=== PATIENT | female | born 1950 | race Caucasian/White ===

== ENCOUNTER 2018-04-14 05:28 | Inpatient (IN) ==
[~2018-04-14 05:28] MED LIST: Metoprolol Tartrate 25 MG Tablet PO SCH
[2018-04-14] MEDS ORDERED: Insulin Regular (For Infusion) 100 UNIT in Sodium Chlor 0.9% Inj 99 ML IV.CONT PRN ×2 (06:06→12:13)
[2018-04-14] MEDS ORDERED: Dextrose 50% in Water 50 ML Vial IV.PUSH PRN ×2 (06:06→12:13)
[2018-04-14] MEDS ORDERED: Sodium Chloride 0.9% Irr Bot 500 ML, ceFAZolin Inj 500 MG IRRIGATION SCH ×2 (06:15)
[2018-04-14] MEDS ORDERED: Metoprolol Tartrate 25 MG Tablet PO ONE (06:15)
[2018-04-14] MEDS ORDERED: Chlorhexidine 4% Topical 120 APPLIC/120 ML Bottle TOPICAL SCH (06:15)
[2018-04-14] MEDS ORDERED: Chlorhexidine Gluconate 2% 1 Pack (2 Cloths) TOPICAL ONE (06:15)
[2018-04-14] MEDS ORDERED: Sodium Chlor 0.9% Inj 500 ML IV.CONT ONE ×2 (06:15→07:19)
[2018-04-14] MEDS ORDERED: Heparin - SQ 10,000 UNITS/ML Vial ONE ×2 (06:26→06:27)
[2018-04-14] MEDS ORDERED: ceFAZolin 2 GM Premix Inj 2 GM/50 ML PIGGYBACK IV.SIG ONE (06:27)
[2018-04-14] MEDS ORDERED: ceFAZolin Inj 2,000 MG in Sodium Chlor 0.9% Inj 80 ML IV.SIG SCH (07:00)
[2018-04-14] MEDS ORDERED: Sodium Chlor 0.9% Inj 200 ML IV.CONT ONE (07:19)
[2018-04-14] MEDS ORDERED: Normosol-R pH 7.4 Inj 3,000 ML IV.CONT ONE (07:19)
[2018-04-14] MEDS ORDERED: Sodium Chlor 0.9% Inj 1,000 ML IV.CONT ONE (07:19)
[2018-04-14] MEDS ORDERED: Artificial Tears Opth Oint 3.5 GM Tube EACH EYE ONE (07:19)
[2018-04-14] MEDS ORDERED: Protamine Sulfate Inj 50 MG/5 ML Vial IV.CONT ONE (07:19)
[2018-04-14] MEDS ORDERED: Dexmedetomidine Inj 200 MCG/2 ML Vial IV.CONT ONE (07:19)
[2018-04-14] MEDS ORDERED: Phenylephrine/NS 1000 MCG/10ML Syringe IV.PUSH ONE (07:19)
[2018-04-14] MEDS ORDERED: CUST1000P IRRIGATION ONE (07:26)
[2018-04-14] MEDS ORDERED: Potassium Chlor 40 mEq Premix 40 MEQ/100 ML PIGGYBACK ONE (07:26)
[2018-04-14] MEDS ORDERED: Albumin Human 25% Inj 50 ML IV.SIG ONE (07:27)
[2018-04-14] MEDS ORDERED: Heparin 10,000 UNITS/10 ML Vial (for IV use) ONE (07:28)
[2018-04-14] MEDS ORDERED: Calcium Chloride Inj 1 GM/10 ML Syringe ONE (07:28)
--- NOTE | 2018-04-14 09:31 | P.PNCV ---
- Note Subjective/Hospital Course: 68/ female initially seen in office 03/18/[address] Gutierrez . With known childhood murmur who was diagnosed with when she had hip surgery a few years ago. She has been monitored and recent ECHO revealed progression of her severe . She reported having fatigue and exertional dyspnea PMH anxiety, < DM, HLP, HTN, Pacer insitu ( bradycardia ) , Afib ( eliquis at home ) pt electively admitted for surgery Objective: Vital Signs - 24 hr 04/14/18 07:09 Temperature 98.9 F Pulse Rate 80 Respiratory Rate 16 Blood Pressure 196/84 H Pulse Oximetry 99 Labs: Laboratory Results - last 12 hr 04/14/18 06:40 Blood Type B Positive Antibody Screen Negative MTS Gel Crossmatch See Detail Bld Prod Order Comment
--- NOTE | 2018-04-14 09:43 | P.DCO ---
- Diagnosis (1) Aortic stenosis Status: Acute (2) S/P aortic valve replacement Status: Acute (3) Diabetes mellitus Status: Acute (4) Hyperlipidemia Status: Acute (5) Hypertension Status: Acute - Home Health Nursing Order: Medical education, Signs/symptoms of disease process, Diabetic education , Wound care and dressing changes, Nursing assessment with vital signs Instructions: Heart and Vascular Surgery patients *Special attention to sternal dressing Mandatory frequency Assess and evaluation, 4 days in a row The next week 3X week 2 times a week for 4 weeks 1 time a week for 5 weeks Schedule Heart and Vascular patients for full 60 day certification period Initial visit Review Open Heart Surgery Discharge Instructions (Sternal precautions, Activity, Elastic hose, Incision care, Driving, Incentive spirometry, Smoking, [place], Work and other) Need Betadine to paint incision Medication reconciliation Importance of follow up care/ check on appointments Make calendar record temperature daily When to call [facility] nurse, review instructions, phone list Incentive Spirometry, demonstration Visit 1- Begin discharge instruction for patient family and/ or caregiver using teach back method- Signs and symptoms of infection Disease characteristics Medicines and side effects Foods and nutrition/ appetite Infection control/ hand washing/ hygiene Visit 2- Continue teaching Discharge instructions- include additional information on smoking cessation , sternal dressing (sternal vac) Visit 3- Continue teaching- Cough and deep breathing, incision monitoring. Choose my plate Visit 4- Continue teaching- Discuss limitations Discuss how they are feeling Discuss progress toward goals Remaining visits- continue teaching and monitoring For any questions please call : Friday 8am-5pm Heart & Vascular Surgery Office ( Dr. Gutierrez & Dr. Dutta), After Hours / Nights (5pm -8am) Weekends and Holidays Please call [facility] Card[facility] Unit ([facility]) Charge Nurse PREVENA Single Use Negative Wound Therapy System Caregiver Instruction Sheet 1. A Prevena dressing system was applied to the chest incision during surgery , to promote wound healing. It works via a suction device (negative pressure wound therapy) to remove low to moderate levels of exudate (drainage) and infectious materials. We recommend that the device stay in place for up to seven days, from day of surgery. 2. Day of Surgery__04/14/18 Day of Removal ____04/21/18 3. The dressing should only be removed by a health nonfarm animal caretaker. Please arrange removal of device to coincide with Home Health visit and or with Nursing staff at Rehab 4. If skin reddening or irritation of skin occurs, or excessive drainage, please notify the Cardiovascular Surgeons office at [phone]. 5. Light showering is permissible; however the pump should be disconnected and placed in safe location, where it will not get wet. The dressing should not be exposed to direct spray or submerged in water. No bath tub / shower only. Ensure the end of the tubing attached to the dressing is facing down so that water does not enter the top of the tube. 6. To remove Prevena dressing: press purple button to turn off device / remove the suction. Then disconnect the tubing from the pump. The fixation strips should be stretched away from the skin and the dressing lifted at one corner and peeled back until it has been fully removed. 7. After removal, it is ok to shower daily using liquid dial soap and clean wash cloth, rinse and pat dry, and leave incision open to air dry. For any concerns regarding Prevena dressing, and or wounds, please contact Angeli Miranda, patient navigator at [phone] or notify the Cardiovascular Surgeons office at [phone]. - Case Management Consult Yes - Certification I have seen patient Deann Mclaughlin on 04/14/18. My clinical findings support the need for the requested home health care services because: Deconditioned with increased weakness I certify that my clinical findings support that this patient is homebound because: Post-op weakness (3) Diabetes mellitus Qualifiers: Diabetes mellitus type: type 2
[2018-04-14] MEDS ORDERED: Protamine Sulfate Inj 50 MG/5 ML Vial ONE (10:09)
[2018-04-14] MEDS ORDERED: Sugammadex Inj 200 MG/2 ML Vial IV.PUSH ONE (11:50)
[2018-04-14] MEDS ORDERED: DEXAMETHASONE INFILTRATN ONE ×3 (12:00)
[2018-04-14] MEDS ORDERED: BUPIVACAINE LIPOSO 1.3% IV.SIG ONE ×4 (12:00)
[2018-04-14] MEDS ORDERED: SODIUM CHLOR 0.9% IV.SIG ONE ×4 (12:00)
[2018-04-14] MEDS ORDERED: [UNRECOGNIZED DRUG - OTHER] IV.SIG ONE ×4 (12:00)
[2018-04-14] MEDS ORDERED: MORPHINE INFILTRATN ONE ×3 (12:00)
[2018-04-14] MEDS ORDERED: BUPIVACAINE LIPOSO 1.3% INFILTRATN ONE ×3 (12:00)
[2018-04-14] MEDS ORDERED: [UNRECOGNIZED DRUG - OTHER] INFILTRATN ONE ×3 (12:00)
[2018-04-14] MEDS ORDERED: Morphine Sulfate Inj 2 MG/ML Vial IV.PUSH PRN (12:13)
[2018-04-14] MEDS ORDERED: Albumin Human 5% Inj 250 ML IV.SIG PRN (12:13)
[2018-04-14] MEDS ORDERED: Acetaminophen 325 MG Tablet PO PRN (12:13)
[2018-04-14] MEDS ORDERED: Calcium Chloride Inj 1 GM/10 ML Syringe IV.PUSH PRN (12:13)
[2018-04-14] MEDS ORDERED: Acetaminophen 650 MG Supp RECTAL PRN (12:13)
[2018-04-14] MEDS ORDERED: Post-op Orders (for Pharmacy) OTHER STA (12:13)
[2018-04-14] MEDS ORDERED: Dexmedetomidine Inj 200 MCG in Sodium Chlor 0.9% Inj 48 ML IV.CONT PRN (12:13)
[2018-04-14] MEDS ORDERED: Metoprolol Inj 5 MG/5 ML Vial IV.PUSH PRN (12:13)
[2018-04-14] MEDS ORDERED: Potassium Chlor 20 mEq Premix 20 MEQ/100 ML PIGGYBACK IV.SIG PRN ×3 (12:13)
[2018-04-14] MEDS ORDERED: RESP: Racemic Epinephrine 2.25% 0.5 ML Neb NEB PRN (12:13)
[2018-04-14] MEDS ORDERED: Magnesium Sulfate Inj 2 GM in Sodium Chlor 0.9% Inj 96 ML IV.SIG PRN ×4 (12:13)
[2018-04-14] MEDS ORDERED: fentaNYL Citrate Inj 250 MCG/5 ML Ampul ONE (12:47)
--- NOTE | 2018-04-14 12:54 | P.OP ---
Date of procedure: 04/14/18 Anesthesia: LENKA Surgeon: Gagandeep Gutierrez MD Operation and Findings: PREOPERATIVE DIAGNOSES 1. Severe Aortic Stenosis. 2. Moderate Aortic Insufficiency 3. Atrial fibrillation POSTOPERATIVE DIAGNOSES Same SURGICAL PROCEDURE 1. Mini-Sternotomy 2. Aortic Valve Replacement with a 21 mm Medtronic Mosaic Cinch tissue valve 3. Synchronized cardioversion OFFICE BOOKKEEPER PALMA Cabrales ANESTHESIA General endotracheal. PARKING METER COLLECTOR Sp Elaine CRNA, Kirit Villegas MD PREPARATION ChloraPrep. NEEDLE, SPONGE AND INSTRUMENT COUNT Correct. DRAINS One 28-Romanian mediastinal tube. COMPLICATIONS None. INDICATIONS The patient is a 68-year-old pt with severe aortic stenosis and moderate aortic insufficiency as well as chronic atrial fibrillation, presenting for surgical correction of the above pathology. DESCRIPTION OF PROCEDURE The patient was brought to the operating room and placed supine on the OR table. Following the induction of adequate general endotracheal anesthesia and placement of appropriate monitoring devices, the patient was then prepped and draped in the standard sterile fashion. A 7 cm incision was made overlying the manubrium and the superior aspect of the sternum. Gabriele-sternotomy was performed upto the 4th ICS and the sternotomy T-ed at that point. The pericardium was divided in the midline and the cradle created. At this point the patient's intrinsic rhythm reverted back to atrial fibrillation with resulting hemodynamic compromise. Therefore direct synchronized cardioversion at 150 J was performed resulting in resumption of normal sinus rhythm. The patient was systemically heparinized and anticoagulation monitored by serial ACT measurements. Then 2 pursestring sutures of 2-0 Ethibond were placed on the aorta proximal to the takeoff of the innominate artery, another was placed in the right atrial appendage. At this point, aortic and 2-stage venous cannulas were introduced and attached to the arterial and venous components of the bypass circuit respectively. Antegrade cardioplegia cannula and a left ventricular vent, through the right superior pulmonary vein, were also placed. The patient was placed on cardiopulmonary bypass and core cooling initiated to a temperature of 32 degrees centigrade. The crossclamp was applied and 1000 Mls of antegrade cardioplegia solution ([facility] HTK) given in an antegrade fashion in addition to topical cooling with slushed saline. Upon achieving adequate diastolic arrest of the heart a transverse aortotomy was performed. Additional 400 mLs of direct coronary ostial plegia was given into the left main as well as 300 into the right coronary artery. The aortic valve was then excised and sent for microbiologic analysis. The valve and annulus were noted to be very heavily calcified. Circumferential decalcification was performed. Horizontal mattress sutures of interrupted 2-0 Ethibond were placed on the aortic annulus with pledgets on the ventricular side. After adequate sizing, a 21 mm mosaic valve was brought in the surgical field and the sutures passed through the skirt and the valve was situated using the Cor-Knot device. This appeared to be a good fit. Gradual rewarming was initiated and the aortotomy closed in 2 layers. This was with 4-0 Prolene; the 1st layer being horizontal mattress, the 2nd layer being running baseball stitch. The cross clamp was removed and upon achieving normothermic cardiac activity, transesophageal echocardiography revealed a well-situated aortic prosthesis with no evidence of perivalvular leak and no aortic stenosis or aortic regurgitation. Protamine was administered. Decannulation was performed and all sites were inspected for hemostasis. At this point the closure was undertaken. The pericardium was reapproximated in the midline. 1 chest tube was placed, and the sternum was reapproximated using stainless steel sternal wires. The musculo-fascial layer was then closed in 3 layers. The patient tolerated the procedure well and was transferred to open heart recovery in stable condition.
[2018-04-14] MEDS: Calcium Chloride Inj 1 GM in Sodium Chlor 0.9% Inj 100 ML IV.SIG PRN (13:09)
--- NOTE | 2018-04-14 13:44 | XR ---
EXAM DATE: 04/14/2018 12:13 PM EDT AGE/SEX: 68 years / Female INDICATIONS: Post op AVR. CLINICAL DATA: This is the patient's initial encounter. Patient reports that signs and symptoms have been present for 1 day and indicates a pain score of Nonresponsive. MEDICAL/SURGICAL HISTORY: None. Pacemaker. [place] [facility] [place] . FINDINGS: A single AP view of the chest demonstrates an endotracheal tube with the tip 1.5 cm from the sabino. Nasogastric tube courses off the inferior margin of the film. Right-sided central line with the tip a t the cavoatrial junction. No pneumothorax. Left-sided pacing device. Median sternotomy wires. Heart is mildly enlarged. Pulmonary vascular engorgement observed. Low lung volumes. Resulting bronchovascu lar crowding. No discrete infiltrate or effusion. CONCLUSION: Low lung volumes. Clear lungs. Electronically signed by: Chele Ervin MD 04/14/2018 1:43 PM EDT
[2018-04-14] MEDS ORDERED: Clevidipine Inj 25 MG/50 ML VIAL IV.CONT PRN (14:00)
[2018-04-14] MEDS: fentaNYL Citrate Inj 100 MCG/2 ML Ampul IV.PUSH PRN ×6 (14:30→23:29)
[2018-04-14] MEDS ORDERED: Phenylephrine Inj 40 MG in Sodium Chlor 0.9% Inj 496 ML IV.CONT PRN (15:45)
[2018-04-14] MEDS: Amiodarone 200 MG Tablet PO SCH (20:47)
[2018-04-14] MEDS: ceFAZolin Inj 2,000 MG in Sodium Chlor 0.9% Inj 80 ML IV.SIG SCH (21:32)
[2018-04-15] MEDS: Calcium Chloride Inj 1 GM in Sodium Chlor 0.9% Inj 100 ML IV.SIG PRN (00:39)
[2018-04-15] MEDS: fentaNYL Citrate Inj 100 MCG/2 ML Ampul IV.PUSH PRN ×3 (01:32→07:59)
[2018-04-15] MEDS: Ketorolac Inj 30 MG/ML (IVP) Vial IV.PUSH PRN ×2 (01:46→17:51)
[2018-04-15] MEDS: ceFAZolin Inj 2,000 MG in Sodium Chlor 0.9% Inj 80 ML IV.SIG SCH ×3 (04:41→20:15)
[2018-04-15 04:44] LABS: Hematocrit 35.8 % (35.0-46.0); Hemoglobin 11.7 gm/dL (11.6-15.3); Mean Corpuscular HGB Conc 32.6 % (32.0-36.0); Mean Corpuscular Hemoglobin 27.3 pg (27.0-34.0); Mean Corpuscular Volume 83.8 fL (80.0-100.0); Mean Platelet Volume 8.4 fL (7.0-11.0); Platelet Count 205 th/mm3 (150-450); Red Blood Count 4.27 mil/mm3 (4.00-5.30); Red Cell Distribution Width 15.9 % (11.6-17.2); White Blood Count 21.1 th/mm3 (4.0-11.0)
--- NOTE | 2018-04-15 04:51 | XR ---
EXAM DATE: 04/15/2018 5:00 AM EDT AGE/SEX: 68 years / Female INDICATIONS: Short of breath. CLINICAL DATA: This is the patient's subsequent encounter. Patient reports that signs and symptoms h ave been present for 2 days and indicates a pain score of 0/10. MEDICAL/SURGICAL HISTORY: None. CABG. Pacemaker. COMPARISON: [facility], CHEST 1V SINGLE AP, 04/14/2018. . FINDINGS: The patient is status post sternotomy. There is a pacing device seen in the left chest. There is a ri ght internal jugular central line in good position. The heart size is normal. There is increased dens ity at the medial lower lungs bilaterally being worse on the left. There some blunting of left costop hrenic angle which may relate to a mild effusion. CONCLUSION: Bibasilar areas of mild atelectasis or consolidation being worse on the left. Possible mild left pleural effusion. Electronically signed by: Merrill Kraft MD 04/15/2018 4:49 AM EDT
[2018-04-15 05:06] LABS: Anion Gap 12 meq/L (5-15); Blood Urea Nitrogen 14 mg/dL (7-18); Calcium 8.8 mg/dL (8.5-10.1); Carbon Dioxide 23.1 meq/L (21.0-32.0); Chloride 107 meq/L (98-107); Glomerular Filtration Rate Greater Than 89 mL/min (>89); Glucose,Random 96 mg/dL (74-106); Sodium 142 meq/L (136-145)
--- NOTE | 2018-04-15 08:20 | ECG ---
Date Performed: 04/15/2018 Time Performed: 05:07:18 PTAGE: 68 years EKG: Sinus rhythm Right bundle branch block Anterolateral infarct - age undetermined Low QRS voltages in precordial le ads Abnormal ECG Probably No significant change from prior electrocardiogram. PREVIOUS TRACING : 04/07/2018 11.05 DOCTOR: Yayo Parada Interpretating Date/Time 04/15/2018 08:19:33
[2018-04-15] MEDS ORDERED: CONJUGATED ESTROGENS PO SCH (09:00)
[2018-04-15] MEDS ORDERED: CONJ ESTROG MEDROXYPROGEST ACE PO SCH (09:00)
[2018-04-15] MEDS ORDERED: MEDROXYPROGESTERONE PO SCH (09:00)
[2018-04-15] MEDS ORDERED: Dextrose 50% in Water 50 ML Vial IV.PUSH PRN (09:03)
[2018-04-15] MEDS ORDERED: Bisacodyl 10 MG Supp RECTAL PRN (09:03)
[2018-04-15] MEDS ORDERED: Sod Phosphate/Sod Biphosphate (Adult) Enema 133 ML Bottle RECTAL PRN (09:03)
[2018-04-15] MEDS: Amiodarone 200 MG Tablet PO SCH ×2 (09:54→20:13)
[2018-04-15] MEDS: Metoprolol Tartrate 25 MG Tablet PO SCH ×2 (09:55→20:14)
[2018-04-15] MEDS: Insulin NovoLOG Aspart Correctional Sugar Inj SQ SCH ×4 (09:57→23:37)
--- NOTE | 2018-04-15 10:36 | P.PNCV ---
- Note Subjective/Hospital Course: 68/ female initially seen in office 03/18/[address] Gutierrez . With known childhood murmur who was diagnosed with when she had hip surgery a few years ago. She has been monitored and recent ECHO revealed progression of her severe . She reported having fatigue and exertional dyspnea PMH anxiety, < DM, HLP, HTN, Pacer insitu ( bradycardia ) , Afib ( eliquis at home ) pt electively admitted for surgery surgery: 04/14 PREOPERATIVE DIAGNOSES 1. Severe Aortic Stenosis. 2. Moderate Aortic Insufficiency 3. Atrial fibrillation SURGICAL PROCEDURE 1. Mini-Sternotomy 2. Aortic Valve Replacement with a 21 mm Medtronic Mosaic Cinch tissue valve 3. Synchronized cardioversion extubated after surgery crystalloid 4000cc, 500cc cell saver, 1000cc EBL 04/15 up in chair on room air + 8kg gentle diuresis start low dose BB resume eliquis once chest tube out and dc plavix transfer to stepdown unit Objective: Vital Signs - 24 hr 04/14/18 12:36 04/14/18 12:40 04/14/18 13:24 Temperature Pulse Rate 70 66 Respiratory Rate 12 12 Blood Pressure 82/59 L Pulse Oximetry 98 99 04/14/18 13:35 04/14/18 14:25 04/14/18 15:00 Temperature Pulse Rate 71 Respiratory Rate 14 16 Blood Pressure 98/56 L Pulse Oximetry 99 99 99 04/14/18 15:33 04/14/18 19:00 04/14/18 19:56 Temperature Pulse Rate 74 77 Respiratory Rate 15 14 Blood Pressure Pulse Oximetry 04/14/18 20:00 04/14/18 20:40 04/14/18 21:28 Temperature 98.0 F Pulse Rate 76 77 Respiratory Rate 16 16 14 Blood Pressure 135/62 Pulse Oximetry 99 98 04/14/18 21:42 04/14/18 23:00 04/15/18 00:00 Temperature 98.3 F 98.6 F Pulse Rate 75 Respiratory Rate 14 18 Blood Pressure 123/51 L Pulse Oximetry 97 04/15/18 02:10 04/15/18 03:00 04/15/18 04:49 Temperature 98.1 F Pulse Rate 79 76 Respiratory Rate 16 18 16 Blood Pressure 103/51 L Pulse Oximetry 96 04/15/18 07:00 04/15/18 08:04 Temperature 97.7 F Pulse Rate 85 82 Respiratory Rate 16 16 Blood Pressure 112/51 L Pulse Oximetry 95 97 GENERAL: A&O x 3 SKIN: Warm and dry. prevena dressing to chest HEAD: Normocephalic. EYES: No scleral icterus. No injection or drainage. NECK: Supple, trachea midline. No JVD or lymphadenopathy. CARDIOVASCULAR: Regular rate and rhythm, soft systolic murmurs, no gallops, or rubs. mild general edema RESPIRATORY: Breath sounds equal bilaterally. No accessory muscle use. GASTROINTESTINAL: Abdomen soft, non-tender, nondistended. MUSCULOSKELETAL: No cyanosis, or edema. BACK: Nontender without obvious deformity. No CVA tenderness. Labs: Laboratory Results - last 12 hr 04/14/18 04/15/18 04/15/18 23:27 01:39 03:50 WBC 21.1 H RBC 4.27 Hgb 11.7 Hct 35.8 MCV 83.8 MCH 27.3 MCHC 32.6 RDW 15.9 Plt Count 205 MPV 8.4 Sodium Potassium Chloride Carbon Dioxide Anion Gap BUN Creatinine Estimated GFR POC Glucose 116 H 86 Random Glucose Calcium Magnesium 04/15/18 04/15/18 04/15/18 03:50 03:59 05:55 WBC RBC Hgb Hct MCV MCH MCHC RDW Plt Count MPV Sodium 142 Potassium 4.0 Chloride 107 Carbon Dioxide 23.1 Anion Gap 12 BUN 14 Creatinine 0.48 L Estimated GFR Greater than 89 POC Glucose 94 107 Random Glucose 96 Calcium 8.8 Magnesium 2.0 Result Diagrams: 04/15/18 03:50 04/15/18 03:50 Telemetry: NSR intermittent paced - Plan (2) S/P aortic valve replacement Plan: ASA, Plavix statin OOB leave chest tubes in [pain control pulm toileting gentle diuresis (3) Diabetes mellitus Plan: resume metformin in am monitor BGM eval to resume jardinance and glipizide insulin sliding scale diabetic diet (5) Hypertension Plan: resume BB (6) Atrial fibrillation Plan: resume eliquis when chest tube out (3) Diabetes mellitus Qualifiers: Diabetes mellitus type: type 2
--- NOTE | 2018-04-15 10:59 | P.DIET ---
Nutritional Evaluation Screening comments: MDC for diet education s/p Mini AVR received. Patient Navigator to provide education. Consult RD if complexities with diet education arise.
[2018-04-15] MEDS: Docusate Sodium 100 MG Capsule PO SCH (20:15)
[2018-04-16] MEDS: Insulin NovoLOG Aspart Correctional Sugar Inj SQ SCH ×5 (01:43→20:52)
[2018-04-16] MEDS: ceFAZolin Inj 2,000 MG in Sodium Chlor 0.9% Inj 80 ML IV.SIG SCH (04:01)
[2018-04-16 05:25] LABS: Baso % (Auto) 0.1 % (0.0-2.0); Eos # (Auto) 0.1 th/mm3 (0.0-0.4); Eos % (Auto) 0.5 % (0.0-4.0); Lymph % (Auto) 6.1 % (9.0-44.0); Mean Corpuscular HGB Conc 33.5 % (32.0-36.0); Mean Corpuscular Hemoglobin 27.8 pg (27.0-34.0); Mean Platelet Volume 8.3 fL (7.0-11.0); Mono # (Auto) 1.4 th/mm3 (0.0-0.9); Mono % (Auto) 8.2 % (0.0-8.0); Neut # (Auto) 14.2 th/mm3 (1.8-7.7); Neut % (Auto) 85.1 % (16.0-70.0); Platelet Count 185 th/mm3 (150-450); Red Blood Count 3.61 mil/mm3 (4.00-5.30); Red Cell Distribution Width 15.5 % (11.6-17.2); White Blood Count 16.7 th/mm3 (4.0-11.0)
[2018-04-16 05:59] LABS: Anion Gap 7 meq/L (5-15); Blood Urea Nitrogen 16 mg/dL (7-18); Calcium 8.4 mg/dL (8.5-10.1); Carbon Dioxide 26.1 meq/L (21.0-32.0); Chloride 102 meq/L (98-107); Glomerular Filtration Rate Greater Than 89 mL/min (>89); Glucose,Random 124 mg/dL (74-106); Magnesium 2.1 mg/dL (1.5-2.5); Potassium 4.2 meq/L (3.5-5.1); Sodium 135 meq/L (136-145)
[2018-04-16] MEDS: Docusate Sodium 100 MG Capsule PO SCH ×2 (08:26→20:52)
[2018-04-16] MEDS: Polyethylene Glycol 3350 17 GM Packet PO SCH (08:26)
[2018-04-16] MEDS: Metoprolol Tartrate 25 MG Tablet PO SCH ×2 (08:27→20:51)
[2018-04-16] MEDS: Multivitamin/Minerals Therapeutic Tablet PO SCH (08:27)
[2018-04-16] MEDS: Amiodarone 200 MG Tablet PO SCH ×2 (08:28→20:51)
[2018-04-16] MEDS ORDERED: EMPAGLIFLOZIN 25 MG PO SCH (09:00)
[2018-04-16] MEDS ORDERED: Mag Sulf 1 gm/100 ml Premix 100 ML IV.SIG ONE (09:00)
[2018-04-16] MEDS ORDERED: Amiodarone Inj 150 MG in Dextrose 5% in Water Inj 97 ML IV.SIG ONE ×2 (09:30)
--- NOTE | 2018-04-16 12:34 | P.PNCV ---
- Note Subjective/Hospital Course: 68/ female initially seen in office 03/18/[address] Gutierrez . With known childhood murmur who was diagnosed with when she had hip surgery a few years ago. She has been monitored and recent ECHO revealed progression of her severe . She reported having fatigue and exertional dyspnea PMH anxiety, < DM, HLP, HTN, Pacer insitu ( bradycardia ) , Afib ( eliquis at home ) pt electively admitted for surgery surgery: 04/14 PREOPERATIVE DIAGNOSES 1. Severe Aortic Stenosis. 2. Moderate Aortic Insufficiency 3. Atrial fibrillation SURGICAL PROCEDURE 1. Mini-Sternotomy 2. Aortic Valve Replacement with a 21 mm Medtronic Mosaic Cinch tissue valve 3. Synchronized cardioversion extubated after surgery crystalloid 4000cc, 500cc cell saver, 1000cc EBL 04/15 up in chair on room air + 8kg gentle diuresis start low dose BB resume eliquis once chest tube out and dc plavix transfer to stepdown unit 04/16 pt went into short run Afib RVR, then converted back to NSR po amiodarone increased dc plavix chest tube dc without difficulty restart eliquis this pm recheck labs and CXR in am Objective: Vital Signs - 24 hr 04/15/18 13:00 04/15/18 14:00 04/15/18 15:00 Temperature 98.2 F Pulse Rate 81 80 84 Respiratory Rate 18 Blood Pressure 108/52 L Pulse Oximetry 96 04/15/18 15:58 04/15/18 16:00 04/15/18 17:00 Temperature Pulse Rate 78 82 82 Respiratory Rate 16 Blood Pressure Pulse Oximetry 04/15/18 18:00 04/15/18 19:00 04/15/18 20:00 Temperature 98.2 F Pulse Rate 80 100 H 84 Respiratory Rate 16 Blood Pressure 121/59 L Pulse Oximetry 97 97 04/15/18 21:00 04/15/18 21:24 04/15/18 22:00 Temperature Pulse Rate 82 80 82 Respiratory Rate 17 Blood Pressure Pulse Oximetry 97 04/15/18 23:00 04/16/18 00:00 04/16/18 01:00 Temperature 98.0 F Pulse Rate 83 72 78 Respiratory Rate 16 Blood Pressure 115/54 L Pulse Oximetry 93 L 04/16/18 02:00 04/16/18 03:00 04/16/18 04:00 Temperature 98.0 F Pulse Rate 78 77 76 Respiratory Rate 16 Blood Pressure 133/63 Pulse Oximetry 93 L 04/16/18 05:00 04/16/18 06:00 04/16/18 07:00 Temperature 98.5 F Pulse Rate 76 69 94 H Respiratory Rate 18 Blood Pressure 142/64 H Pulse Oximetry 93 L 04/16/18 08:00 04/16/18 08:35 04/16/18 08:45 Temperature Pulse Rate 76 164 H 113 H Respiratory Rate Blood Pressure Pulse Oximetry 04/16/18 09:00 04/16/18 10:00 Temperature Pulse Rate 59 L 59 L Respiratory Rate Blood Pressure Pulse Oximetry GENERAL: A&O x 3 SKIN: Warm and dry. prevena dressing to chest HEAD: Normocephalic. EYES: No scleral icterus. No injection or drainage. NECK: Supple, trachea midline. No JVD or lymphadenopathy. CARDIOVASCULAR: Regular rate and rhythm without murmurs, gallops, or rubs. episode of irregular rhythm, mild general edema RESPIRATORY: Breath sounds equal bilaterally. No accessory muscle use. chest tube dc GASTROINTESTINAL: Abdomen soft, non-tender, nondistended. MUSCULOSKELETAL: No cyanosis, or edema. BACK: Nontender without obvious deformity. No CVA tenderness. Labs: Laboratory Results - last 12 hr 04/16/18 04/16/18 04/16/18 01:39 04:00 04:00 WBC 16.7 H RBC 3.61 L Hgb 10.0 L Hct 30.0 L MCV 83.0 MCH 27.8 MCHC 33.5 RDW 15.5 Plt Count 185 MPV 8.3 Neut % (Auto) 85.1 H Lymph % (Auto) 6.1 L [place] % (Auto) 8.2 H Eos % (Auto) 0.5 Baso % (Auto) 0.1 Neut # (Auto) 14.2 H Lymph # (Auto) 1.0 [place] # (Auto) 1.4 H Eos # (Auto) 0.1 Baso # (Auto) 0.0 WBC Differential . Differential Comment Auto diff final Sodium 135 L Potassium 4.2 Chloride 102 Carbon Dioxide 26.1 Anion Gap 7 BUN 16 Creatinine 0.58 Estimated GFR Greater than 89 POC Glucose 142 H Random Glucose 124 H Calcium 8.4 L Magnesium 2.1 04/16/18 05:31 WBC RBC Hgb Hct MCV MCH MCHC RDW Plt Count MPV Neut % (Auto) Lymph % (Auto) [place] % (Auto) Eos % (Auto) Baso % (Auto) Neut # (Auto) Lymph # (Auto) [place] # (Auto) Eos # (Auto) Baso # (Auto) WBC Differential Differential Comment Sodium Potassium Chloride Carbon Dioxide Anion Gap BUN Creatinine Estimated GFR POC Glucose 123 H Random Glucose Calcium Magnesium Result Diagrams: 04/16/18 04:00 04/16/18 04:00 - Plan (2) S/P aortic valve replacement Plan: ASA, Plavix statin OOB l/ chest tube removed [pain control pulm toileting (3) Diabetes mellitus Plan: resume metformin in am monitor BGM eval to resume jardinance and glipizide insulin sliding scale diabetic diet (5) Hypertension Plan: resume BB (6) Atrial fibrillation Plan: resume eliquis increase po amiodarone and BB (3) Diabetes mellitus Qualifiers: Diabetes mellitus type: type 2
[2018-04-17 05:12] LABS: Anion Gap 7 meq/L (5-15); Blood Urea Nitrogen 9 mg/dL (7-18); Calcium 8.5 mg/dL (8.5-10.1); Carbon Dioxide 29.3 meq/L (21.0-32.0); Chloride 104 meq/L (98-107); Glomerular Filtration Rate Greater Than 89 mL/min (>89); Glucose,Random 148 mg/dL (74-106); Magnesium 2.4 mg/dL (1.5-2.5); Phosphorus 2.7 mg/dL (2.5-4.9); Potassium 4.2 meq/L (3.5-5.1); Sodium 140 meq/L (136-145)
--- NOTE | 2018-04-17 06:11 | XR ---
EXAM DATE: 04/17/2018 5:34 AM EDT AGE/SEX: 68 years / Female INDICATIONS: Chest tube removal, evaluate for pneumothorax CLINICAL DATA: This is the patient's subsequent encounter. Patient reports that signs and symptoms h ave been present for 2 days and indicates a pain score of 0/10. MEDICAL/SURGICAL HISTORY: None. CABG. Pacemaker. COMPARISON: [facility], CHEST 1V SINGLE AP, 04/15/2018. . FINDINGS: Right internal jugular catheter tip at the cavoatrial junction. Cardiac pacer leads in place. Increas ing consolidation in the left lower lung with loss of delineation of the entire left hemidiaphragm. H azy opacity in the lower right chest suggests pleural effusion. The heart is upper limits normal size . CONCLUSION: Increasing consolidation left lower lobe. No evidence of pneumothorax. Electronically signed by: Chele Scott MD 04/17/2018 6:09 AM EDT
[2018-04-17] MEDS: Polyethylene Glycol 3350 17 GM Packet PO SCH (09:05)
[2018-04-17] MEDS: Multivitamin/Minerals Therapeutic Tablet PO SCH (09:06)
[2018-04-17] MEDS: Docusate Sodium 100 MG Capsule PO SCH ×2 (09:06→20:19)
[2018-04-17] MEDS: Amiodarone 200 MG Tablet PO SCH ×2 (09:07→20:19)
[2018-04-17] MEDS: Insulin NovoLOG Aspart Correctional Sugar Inj SQ SCH ×4 (09:08→20:28)
[2018-04-17] MEDS: Metoprolol Tartrate 25 MG Tablet PO SCH ×2 (09:09→20:21)
--- NOTE | 2018-04-17 11:29 | P.PNCV ---
- Note Subjective/Hospital Course: 68/ female initially seen in office 03/18/[address] Gutierrez . With known childhood murmur who was diagnosed with when she had hip surgery a few years ago. She has been monitored and recent ECHO revealed progression of her severe . She reported having fatigue and exertional dyspnea PMH anxiety, < DM, HLP, HTN, Pacer insitu ( bradycardia ) , Afib ( eliquis at home ) pt electively admitted for surgery surgery: 04/14 PREOPERATIVE DIAGNOSES 1. Severe Aortic Stenosis. 2. Moderate Aortic Insufficiency 3. Atrial fibrillation SURGICAL PROCEDURE 1. Mini-Sternotomy 2. Aortic Valve Replacement with a 21 mm Medtronic Mosaic Cinch tissue valve 3. Synchronized cardioversion extubated after surgery crystalloid 4000cc, 500cc cell saver, 1000cc EBL 04/15 up in chair on room air + 8kg gentle diuresis start low dose BB resume eliquis once chest tube out and dc plavix transfer to stepdown unit 04/16 pt went into short run Afib RVR, then converted back to NSR po amiodarone increased dc plavix chest tube dc without difficulty restart eliquis this pm recheck labs and CXR in am . 04/17 brief episode of afib last pm will increase BB, continue amiodarone back on eliquis, DC CVC line eval for dc in am gentle diuresis Objective: Vital Signs - 24 hr 04/16/18 12:00 04/16/18 12:04 04/16/18 13:00 Temperature Pulse Rate 86 73 79 Respiratory Rate 20 Blood Pressure Pulse Oximetry 04/16/18 14:00 04/16/18 15:00 04/16/18 16:00 Temperature 98.5 F Pulse Rate 77 77 73 Respiratory Rate 18 Blood Pressure 143/65 H Pulse Oximetry 94 L 04/16/18 17:00 04/16/18 18:00 04/16/18 19:00 Temperature 98.6 F Pulse Rate 78 85 87 Respiratory Rate 16 Blood Pressure 148/69 H Pulse Oximetry 94 L 04/16/18 20:00 04/16/18 20:39 04/16/18 20:40 Temperature Pulse Rate 80 86 Respiratory Rate 16 Blood Pressure Pulse Oximetry 94 L 04/16/18 21:00 04/16/18 22:00 04/16/18 23:00 Temperature 98.2 F Pulse Rate 102 H 78 76 Respiratory Rate 16 Blood Pressure 113/57 L Pulse Oximetry 95 04/17/18 00:00 04/17/18 01:00 04/17/18 02:00 Temperature Pulse Rate 70 70 68 Respiratory Rate Blood Pressure Pulse Oximetry 04/17/18 03:00 04/17/18 04:00 04/17/18 05:00 Temperature 98.2 F Pulse Rate 76 70 72 Respiratory Rate 16 Blood Pressure 128/60 Pulse Oximetry 96 04/17/18 06:00 04/17/18 07:00 04/17/18 07:30 Temperature 98.0 F Pulse Rate 69 72 75 Respiratory Rate 18 16 Blood Pressure 138/63 Pulse Oximetry 96 96 04/17/18 08:00 04/17/18 09:00 04/17/18 10:00 Temperature Pulse Rate 70 70 72 Respiratory Rate Blood Pressure Pulse Oximetry 96 04/17/18 11:00 Temperature 98.2 F Pulse Rate 81 Respiratory Rate 18 Blood Pressure 132/62 Pulse Oximetry 97 GENERAL: A&O x 3 SKIN: Warm and dry. prevena dressing to chest HEAD: Normocephalic. EYES: No scleral icterus. No injection or drainage. NECK: Supple, trachea midline. No JVD or lymphadenopathy. CARDIOVASCULAR: Regular rate and rhythm , soft SM , no gallops, or rubs. mild general edema RESPIRATORY: Breath sounds equal bilaterally. No accessory muscle use. diminished in bases GASTROINTESTINAL: Abdomen soft, non-tender, nondistended. MUSCULOSKELETAL: No cyanosis, or edema. BACK: Nontender without obvious deformity. No CVA tenderness. Labs: Laboratory Results - last 12 hr 04/14/18 04/17/18 06:40 04:15 Sodium 140 Potassium 4.2 Chloride 104 Carbon Dioxide 29.3 Anion Gap 7 BUN 9 Creatinine 0.43 L Estimated GFR Greater than 89 Random Glucose 148 H Calcium 8.5 Phosphorus 2.7 Magnesium 2.4 MTS Gel Crossmatch See Detail Result Diagrams: 04/16/18 04:00 04/17/18 04:15 Telemetry: NSR>AFIB> NSR - Plan (2) S/P aortic valve replacement Plan: ASA, Plavix statin OOB / on room air [pain control pulm toileting evakl for dc in am (3) Diabetes mellitus Plan: on metformin, resume glipizide monitor BGM insulin sliding scale diabetic diet (4) Hyperlipidemia Plan: on statin (5) Hypertension Plan: resume BB (6) Atrial fibrillation Plan: eliquis po amiodarone and BB (3) Diabetes mellitus Qualifiers: Diabetes mellitus type: type 2
--- NOTE | 2018-04-17 12:45 | P.DS ---
Date of admission: 04/14/18 05:28 Primary care physician: Kristen Godfrey Attending physician on discharge: Gagandeep Gutierrez Anticipated date of discharge: 04/18/18 Brief History from admission: 68/ female initially seen in office 03/18/[address] Gutierrez . With known childhood murmur who was diagnosed with when she had hip surgery a few years ago. She has been monitored and recent ECHO revealed progression of her severe . She reported having fatigue and exertional dyspnea PMH anxiety, < DM, HLP, HTN, Pacer insitu ( bradycardia ) , Afib ( eliquis at home ) pt electively admitted for surgery surgery: 04/14 DS: Diagnosis - Discharge Diagnosis (1) Aortic stenosis Status: Acute (2) S/P aortic valve replacement Status: Acute (3) Diabetes mellitus Status: Chronic (4) Hyperlipidemia Status: Chronic (5) Hypertension Status: Chronic (6) Atrial fibrillation Status: Chronic DS: Medications - Discharge Medications Prescriptions: amiodarone 400 mg PO Q12HR #60 tab docusate sodium [DOK] 100 mg PO BID #60 cap hydrocodone-acetaminophen 1 tab PO Q4H PRN #40 tab PRN Reason: Pain Scale 1 To 5 metoprolol tartrate 50 mg PO BID #60 tab diumpikg-maaj-PH-calcium-mins [Thera M Plus (ferrous fumarat)] 1 tab PO DAILY # 30 tab DS: Summary Hospital Course: pt electively admitted for surgery surgery: 04/14 PREOPERATIVE DIAGNOSES 1. Severe Aortic Stenosis. 2. Moderate Aortic Insufficiency 3. Atrial fibrillation SURGICAL PROCEDURE 1. Mini-Sternotomy 2. Aortic Valve Replacement with a 21 mm Medtronic Mosaic Cinch tissue valve 3. Synchronized cardioversion extubated after surgery crystalloid 4000cc, 500cc cell saver, 1000cc EBL 04/15 up in chair on room air + 8kg gentle diuresis start low dose BB resume eliquis once chest tube out and dc plavix transfer to stepdown unit 04/16 pt went into short run Afib RVR, then converted back to NSR po amiodarone increased dc plavix chest tube dc without difficulty restart eliquis this pm recheck labs and CXR in am . 04/17 brief episode of afib last pm will increase BB, continue amiodarone back on eliquis, DC CVC line eval for dc in am gentle diuresis - Time Spent with Patient Total time spent providing and/or coordinating discharge services: Greater than 30 minutes - Quality: VTE Deep Vein Thrombosis/Pulmonary Embolism Present on Admission: No Exam Vital signs: Vital Signs 04/16/18 13:00 04/16/18 14:00 04/16/18 15:00 Temperature 98.5 F Pulse Rate 79 77 77 Respiratory Rate 18 Blood Pressure 143/65 H Pulse Oximetry 94 L 04/16/18 16:00 04/16/18 17:00 04/16/18 18:00 Temperature Pulse Rate 73 78 85 Respiratory Rate Blood Pressure Pulse Oximetry 04/16/18 19:00 04/16/18 20:00 04/16/18 20:39 Temperature 98.6 F Pulse Rate 87 80 86 Respiratory Rate 16 16 Blood Pressure 148/69 H Pulse Oximetry 94 L 04/16/18 20:40 04/16/18 21:00 04/16/18 22:00 Temperature Pulse Rate 102 H 78 Respiratory Rate Blood Pressure Pulse Oximetry 94 L 04/16/18 23:00 04/17/18 00:00 04/17/18 01:00 Temperature 98.2 F Pulse Rate 76 70 70 Respiratory Rate 16 Blood Pressure 113/57 L Pulse Oximetry 95 04/17/18 02:00 04/17/18 03:00 04/17/18 04:00 Temperature 98.2 F Pulse Rate 68 76 70 Respiratory Rate 16 Blood Pressure 128/60 Pulse Oximetry 96 04/17/18 05:00 04/17/18 06:00 04/17/18 07:00 Temperature 98.0 F Pulse Rate 72 69 72 Respiratory Rate 18 Blood Pressure 138/63 Pulse Oximetry 96 04/17/18 07:30 04/17/18 08:00 04/17/18 09:00 Temperature Pulse Rate 75 70 70 Respiratory Rate 16 Blood Pressure Pulse Oximetry 96 96 04/17/18 10:00 04/17/18 11:00 04/17/18 12:00 Temperature 98.2 F Pulse Rate 72 81 86 Respiratory Rate 18 Blood Pressure 132/62 Pulse Oximetry 97 Intake & Output 04/16/18 04/17/18 04/17/18 18:59 06:59 18:59 Intake Total 480 / 480 720 / 720 Output Total 1300 / 1300 1300 / 1300 Balance -820 / -820 -580 / -580 Weight 83.5 kg Intake: Oral 480 / 480 720 / 720 Output: Urine 1300 / 1300 1300 / 1300 - Constitutional no acute distress - Routine HEENT Exam Head: Present: normocephalic, atraumatic - Routine Neck Exam Present: supple, full ROM - Routine Chest/Breast/Axilla Exam Chest wall: Present: tenderness - Routine Respiratory Exam Present: CTA bilaterally - Routine Cardiovascular Exam Present: RRR, S1, S2 Comments: mild general edema - Routine Abdominal Exam Present: soft, normoactive bowel sounds - Routine Extremities Exam Present: pulses intact, normal capillary refill - Routine Skin Exam Present: intact, wounds Comments: prevena dressing to chest - Routine Neurological Exam Present: alert, oriented X3 Results Procedures completed during hospitalization: 04/14/18 PREOPERATIVE DIAGNOSES 1. Severe Aortic Stenosis. 2. Moderate Aortic Insufficiency 3. Atrial fibrillation POSTOPERATIVE DIAGNOSES Same SURGICAL PROCEDURE 1. Mini-Sternotomy 2. Aortic Valve Replacement with a 21 mm Medtronic Mosaic Cinch tissue valve 3. Synchronized cardioversion Completed studies during hospitalization: Pending at discharge 04/14/18 13:36 Surgical [PTH] Routine Labs on day of discharge: Labs from last 24 hours 04/17/18 04/17/18 04/16/18 11:27 04:15 19:27 Sodium 140 Potassium 4.2 Chloride 104 Carbon Dioxide 29.3 Anion Gap 7 BUN 9 Creatinine 0.43 L Estimated GFR Greater than 89 POC Glucose 169 H 126 H Random Glucose 148 H Calcium 8.5 Phosphorus 2.7 Magnesium 2.4 MTS Gel Crossmatch 04/16/18 04/16/18 04/14/18 17:17 14:35 06:40 Sodium Potassium Chloride Carbon Dioxide Anion Gap BUN Creatinine Estimated GFR POC Glucose 103 174 H Random Glucose Calcium Phosphorus Magnesium MTS Gel Crossmatch See Detail - Impressions ITS Impressions Chest X-Ray 04/17/18 06:00 CONCLUSION: Increasing consolidation left lower lobe. No evidence of pneumothorax. Discharge Plan - Discharge Disposition Patient Disposition: W/Home Health Service - Discharge Condition Condition: Good - Discharge Order Discharge Orders: Discharge Order (Routine); Ordered 04/18/18 Ordered By: Flaca Stacy - Discharge Details Anticipated Discharge Date: 04/18/18 Discharge Comment: ok to dc once cleared by Dr Gutierrez - Physicians Team Primary Care Provider: Kristen Godfrey Attending Provider: Gagandeep Gutierrez Other Providers: [facility] - Rxs /Orders / Referrals /Forms Prescriptions: New amiodarone 200 mg Tablet 400 mg PO Q12HR Qty: 60 RF: 1 docusate sodium [DOK] 100 mg Capsule 100 mg PO BID Qty: 60 RF: 0 hydrocodone-acetaminophen 5-325 mg Tablet 1 tab PO Q4H PRN (Reason: Pain Scale 1 To 5) Qty: 40 RF: 0 metoprolol tartrate 25 mg Tablet 50 mg PO BID Qty: 60 RF: 2 vabmdntr-apvh-UG-calcium-mins [Thera M Plus (ferrous fumarat)] 9 mg iron-400 mcg Tablet 1 tab PO DAILY Qty: 30 RF: 2 Continue apixaban [Eliquis] 5 mg Tablet 5 mg PO BID aspirin [Aspirin Low Dose] 81 mg Tablet,Delayed Release (Dr/Ec) 81 mg PO DAILY calcium-vitamin D3-vitamin K [Citracal Chew] 500 mg-1,000 unit-40 mcg Tablet, Chewable 1 tab PO DAILY conj estrog-medroxyprogest roland [Prempro] 0.3-1.5 mg Tablet 1 tab PO DAILY empagliflozin [Jardiance] 25 mg Tablet 25 mg PO DAILY glipizide 10 mg Tablet Extended Release 24hr 10 mg PO DAILY metformin 1,000 mg Tablet 1,000 mg PO DAILY metformin 500 mg Tablet 500 mg PO HS simvastatin 5 mg Tablet 5 mg PO QPM Discontinued metoprolol succinate 100 mg Tablet Extended Release 24 Hr 100 mg PO DAILY ramipril 5 mg Capsule 5 mg PO DAILY Referrals: Ama Weaver Dr [Other] - See Instructions ( Your appointment has been scheduled for [05/06/18] at [2:15 pm] If you cannot make this appointment, please call the office to reschedule ) Kristen Godfrey ARNP [Primary Care Provider] - See Instructions ( Your appointment has been scheduled for [04/20/18] at [2:30 pm] If you cannot make this appointment, please call the office to reschedule ) Flaca Stacy [ADVANCE RN PRACTITIONER] - See Instructions ( Your appointment has been scheduled for [05/05/18] at [10:45 am] If you cannot make this appointment, please call the office to reschedule ) Kirti Duran,Agency [Agency] - See Instructions - Discharge Instructions Patient Printed Instructions: Aortic Valve Replacement (DC) Additional Instructions: HOME HEALTH CARE HAS BEEN ARRANGED WITH [facility], CONTACT# PREVENA Single Use Negative Wound Therapy System Caregiver Instruction Sheet 1. A Prevena dressing system was applied to the chest incision during surgery , to promote wound healing. It works via a suction device (negative pressure wound therapy) to remove low to moderate levels of exudate (drainage) and infectious materials. We recommend that the device stay in place for up to seven days, from day of surgery. 2. Day of Surgery___/ Day of Removal ___/ 3. The dressing should only be removed by a health nonfarm animal caretaker. Please arrange removal of device to coincide with Home Health visit and or with Nursing staff at Rehab 4. If skin reddening or irritation of skin occurs, or excessive drainage, please notify the Cardiovascular Surgeons office at [phone]. 5. Light showering is permissible; however the pump should be disconnected and placed in safe location, where it will not get wet. The dressing should not be exposed to direct spray or submerged in water. No bath tub / shower only. Ensure the end of the tubing attached to the dressing is facing down so that water does not enter the top of the tube. 6. To remove Prevena dressing: press purple button to turn off device / remove the suction. Then disconnect the tubing from the pump. The fixation strips should be stretched away from the skin and the dressing lifted at one corner and peeled back until it has been fully removed. 7. After removal, it is ok to shower daily using liquid dial soap and clean wash cloth, rinse and pat dry, and leave incision open to air dry. For any concerns regarding Prevena dressing, and or wounds, please contact Angeli Miranda, patient navigator at [phone] or notify the Cardiovascular Surgeons office at [phone]. Incentive spirometry Q1 hr x 10, while awake, also use acapella device hourly whole awake Sternal Breast Bone Precautions: NO pushing or pulling, ( pt must use sternal pillow to support chest with all activities and with coughing ( takes up to 3 months breast bone to heal ) All females to wear sternal bra , launder as needed Daily incision care: ok to shower daily, no tub bath. Wash all incisions with liquid dial soap, clean wash cloth to each site, rinse and pat dry. Observe for any signs of infection, such as drainage which is dark yellow, burt, green or foul smelling. Immediately report to the surgeon any drainage from the chest incision, or legs, and for any abnormal drainage from the chest tube sites. Notify surgeon if any temp >101.5 degrees F. When specialty dressing removed/ or if you do not have one, continue to shower daily as above, then rinse and pat incision dry and paint with betadine daily x 5 days. Allow steri strips to fall off if you have any. Avoid lotions, creams, salves, oils, etc. for the first month Please see attached forms for additional instructions regarding post Open Heart specialty wound vacuum dressings. ROSY or Prevena , Dressing to be removed by Nursing staff on ___04/21/18____ F/U appointment: as per [place] instructions: PCP in 2 weeks, CV surgeon 2 weeks, Development Writer 3-4 weeks For any questions regarding incisions/ dressing / meds / post op care or above Symptoms, Friday 8am-5pm Heart & Vascular Surgery Office ( Dr. Gutierrez & Dr. Dutta), After Hours / Nights (5pm -8am) Weekends and Holidays Please call [facility] Cardiac Intermediate Care Unit ([facility]) Charge Nurse
[2018-04-17] MEDS ORDERED: Amiodarone 200 MG Tablet PO SCH (14:00)
--- NOTE | 2018-04-18 08:24 | P.PNCV ---
- Note Subjective/Hospital Course: 68/ female initially seen in office 03/18/[address] Gutierrez . With known childhood murmur who was diagnosed with when she had hip surgery a few years ago. She has been monitored and recent ECHO revealed progression of her severe . She reported having fatigue and exertional dyspnea PMH anxiety, < DM, HLP, HTN, Pacer insitu ( bradycardia ) , Afib ( eliquis at home ) pt electively admitted for surgery surgery: 04/14 PREOPERATIVE DIAGNOSES 1. Severe Aortic Stenosis. 2. Moderate Aortic Insufficiency 3. Atrial fibrillation SURGICAL PROCEDURE 1. Mini-Sternotomy 2. Aortic Valve Replacement with a 21 mm Medtronic Mosaic Cinch tissue valve 3. Synchronized cardioversion extubated after surgery crystalloid 4000cc, 500cc cell saver, 1000cc EBL 04/15 up in chair on room air + 8kg gentle diuresis start low dose BB resume eliquis once chest tube out and dc plavix transfer to stepdown unit 04/16 pt went into short run Afib RVR, then converted back to NSR po amiodarone increased dc plavix chest tube dc without difficulty restart eliquis this pm recheck labs and CXR in am . 04/17 brief episode of afib last pm will increase BB, continue amiodarone back on eliquis, DC CVC line eval for dc in am gentle diuresis 04/18 Clinically and hemodynamically stable In normal sinus rhythm DC home today Objective: Vital Signs - 24 hr 04/17/18 09:00 04/17/18 10:00 04/17/18 11:00 Temperature 98.2 F Pulse Rate 70 72 81 Respiratory Rate 18 Blood Pressure 132/62 Pulse Oximetry 97 04/17/18 12:00 04/17/18 13:00 04/17/18 14:00 Temperature Pulse Rate 86 82 80 Respiratory Rate Blood Pressure Pulse Oximetry 04/17/18 15:00 04/17/18 16:00 04/17/18 16:31 Temperature 98.2 F Pulse Rate 70 78 72 Respiratory Rate 18 16 Blood Pressure 128/62 Pulse Oximetry 97 04/17/18 17:00 04/17/18 18:00 04/17/18 19:00 Temperature Pulse Rate 72 78 84 Respiratory Rate Blood Pressure Pulse Oximetry 04/17/18 20:00 04/17/18 20:07 04/17/18 20:32 Temperature 98.2 F Pulse Rate 89 107 H 100 H Respiratory Rate 16 18 Blood Pressure 159/68 H Pulse Oximetry 96 95 04/17/18 21:00 04/17/18 22:00 04/17/18 23:00 Temperature 98.2 F Pulse Rate 104 H 88 86 Respiratory Rate 16 18 Blood Pressure 123/63 Pulse Oximetry 95 04/18/18 00:00 04/18/18 01:00 04/18/18 02:00 Temperature Pulse Rate 69 66 67 Respiratory Rate Blood Pressure Pulse Oximetry 04/18/18 03:00 04/18/18 03:30 04/18/18 04:00 Temperature 98.3 F Pulse Rate 73 67 Respiratory Rate 18 16 Blood Pressure 136/63 Pulse Oximetry 98 04/18/18 04:19 04/18/18 05:00 04/18/18 06:00 Temperature Pulse Rate 64 67 72 Respiratory Rate 16 Blood Pressure Pulse Oximetry 04/18/18 07:00 Temperature 98.1 F Pulse Rate 72 Respiratory Rate 17 Blood Pressure 132/61 Pulse Oximetry 98 Labs: Laboratory Results - last 12 hr 04/17/18 04/18/18 20:26 07:49 POC Glucose 142 H 177 H Result Diagrams: 04/16/18 04:00 04/17/18 04:15 - Plan (2) S/P aortic valve replacement Plan: ASA, Plavix statin OOB / on room air [pain control pulm toileting evakl for dc in am (3) Diabetes mellitus Plan: on metformin, resume glipizide monitor BGM insulin sliding scale diabetic diet (4) Hyperlipidemia Plan: on statin (5) Hypertension Plan: resume BB (6) Atrial fibrillation Plan: eliquis po amiodarone and BB (3) Diabetes mellitus Qualifiers: Diabetes mellitus type: type 2
[2018-04-18] MEDS: Metoprolol Tartrate 25 MG Tablet PO SCH (09:00)
[2018-04-18] MEDS: Multivitamin/Minerals Therapeutic Tablet PO SCH (09:00)
[2018-04-18] MEDS: Docusate Sodium 100 MG Capsule PO SCH (09:00)
[2018-04-18] MEDS: Amiodarone 200 MG Tablet PO SCH (09:00)
[2018-04-18] MEDS: Polyethylene Glycol 3350 17 GM Packet PO SCH (09:00)
[2018-04-18] MEDS ORDERED: glipiZIDE 10 MG Tablet PO SCH (09:00)
[2018-04-18] MEDS: Insulin NovoLOG Aspart Correctional Sugar Inj SQ SCH (09:00)
[2018-04-18 10:18] VITALS: RESP 17
[2018-04-18 14:09] VITALS: BP 145/66; PULSE 75; TEMP 98.3; O2SAT 96
--- NOTE | 2018-04-20 20:10 | ECG ---
Date Performed: 04/16/2018 Time Performed: 09:00:14 PTAGE: 68 years EKG: Rhythm is by electronic ventricular pacer with probable underlying Atrial fibrillation When compared to previous tracing, this is new. Abnormal ECG PREVIOUS TRACING : 04/15/2018 05.07.18 DOCTOR: Kirit Li Interpretating Date/Time 04/20/2018 20:09:09
== END 2018-04-18 13:45 | disposition home health service (06) ==
LOC: HSDI 05:28 → HCVI 12:43 → HCPC 04-15 12:18
PROVIDERS: ADMIT Thoracic Surgery (Cardiothoracic Vascular Surgery); ATTEND Thoracic Surgery (Cardiothoracic Vascular Surgery)
PROC: MINIAVR (2018-04-14 07:19)